=== PATIENT | female | born 1945 | race Caucasian/White ===

== ENCOUNTER 2016-09-25 16:58 | Outpatient (CLI) | payer OTHER | END 2016-09-25 16:59 | disposition critical access hospital (66) | DX: R07.9 Chest pain, unspecified (principal) | CPT/HCPCS: A0425; A0427 ==

== ENCOUNTER 2016-09-25 17:22 | Emergency (ER) | payer OTHER ==
[2016-09-25] MEDS ORDERED: NITROGLYCERIN 2% PASTE TOP STA (18:19)
[2016-09-25] MEDS ORDERED: NITROGLYCERIN SL 0.4 MG TABLET SL STA (18:19)
[2016-09-25] MEDS ORDERED: NITROGLYCERIN 2% PASTE TOP ONE (18:25)
[2016-09-25] MEDS ORDERED: HEPARIN 25,000 UNITS/500 ML 500 ML IV STA (18:28)
[2016-09-25] MEDS ORDERED: HEPARIN 5,000 UNIT/ML VIAL IVP ONE (18:28)
[2016-09-25] MEDS ORDERED: HEPARIN 25,000 UNITS/500 ML 500 ML IV ONE (18:29)
[2016-09-25] MEDS ORDERED: HEPARIN 5,000 UNIT/ML VIAL ONE (18:29)
== END 2016-09-25 18:47 | disposition short-term general hospital (02) ==
DX: I21.3 ST elevation (STEMI) myocardial infarction of unspecified site (principal); I25.10 Atherosclerotic heart disease of native coronary artery without angina pectoris
CPT/HCPCS: 71010; 80053; 82550; 82553; 83690; 84484; 85025; 93005; 93010; 96374; 96376; 99284; 99291; A9270

== ENCOUNTER 2016-09-25 18:58 | Outpatient (CLI) | payer OTHER | END 2016-09-25 18:59 | disposition short-term general hospital (02) | DX: I21.3 ST elevation (STEMI) myocardial infarction of unspecified site (principal) | CPT/HCPCS: A0425; A0427 ==

== ENCOUNTER 2016-11-28 11:17 | Outpatient (CLI) | payer OTHER ==
--- NOTE | 2016-11-29 13:06 | Mammography Report ---
DIGITAL SCREENING MAMMOGRAM: 11/28/2016 CLINICAL INDICATION: A 71-year-old with history of bilateral reduction for screening. COMPARISON: 10/2015, 12/2013, 10/2011, 10/2009, 09/2009, 11/2008, 10/2007. TECHNIQUE: Routine CC and MLO projections were obtained of the breasts as well as bilateral laterall y exaggerated craniocaudal views. FINDINGS: The breasts again demonstrate fatty replacement bilaterally. Post-reduction changes are s table. Coarse and punctate, typically benign calcifications are present. No suspicious masses, clus tered microcalcifications, or regions of architectural distortion are identified. IMPRESSION: BENIGN FINDINGS. RECOMMENDATION: Routine annual screening unless otherwise clinically indicated. BIRADS CATEGORY 2 - BENIGN FINDINGS. STANDARD QUALIFYING STATEMENTS 1. This examination was reviewed with the aid of Computer-Aided Detection (CAD). 2. A negative or benign imaging report should not delay biopsy if clinically suspicious findings are present. Consider surgical consultation if warranted. More than 5% of cancers are not identified by i maging. 3. Dense breasts may obscure an underlying neoplasm. JOB #: [id number] EXT JOB #:[id number]
== END 2016-11-28 11:18 | disposition home or self-care (01) ==
LOC: DI.N 11:17
PROVIDERS: ATTEND Internal Medicine
DX: Z12.31 Encounter for screening mammogram for malignant neoplasm of breast (principal)
CPT/HCPCS: 77067

== ENCOUNTER 2017-07-17 13:09 | Outpatient (CLI) | payer OTHER | END 2017-07-17 13:10 | disposition EMS.NT | LOC: EMS 13:09 | PROVIDERS: ATTEND Surgery | DX: R42 Dizziness and giddiness (principal) ==

== ENCOUNTER 2018-03-09 11:25 | Outpatient (CLI) | payer OTHER | END 2018-03-09 11:26 | disposition critical access hospital (66) | LOC: EMS 11:25 | PROVIDERS: ATTEND Surgery | DX: M79.661 Pain in right lower leg (principal) | CPT/HCPCS: A0425; A0429 ==

== ENCOUNTER 2018-03-09 11:48 | Emergency (ER) | payer OTHER ==
--- NOTE | 2018-03-09 13:02 | ED Physician Documentation ---
PD HPI SKIN - Stated complaint Stated Complaint: RASH - Chief complaint Chief Complaint: Wound - History obtained from History obtained from: Patient - History of Present Illness Timing - onset: How many days ago (has had episodic small sores on body for several weeks or more. These Rx by PMD with mupirocin and local treatment. She has sore on right baxter that started similar but is having expanding area of redness, weeping and some blistering.) Timing - duration: Days Timing - details: Abrupt onset, Still present Location: RLE Quality / character: Painful, Swelling, Draining (clear yellow) Associated symptoms: No: Fever, Myalgias, N/V/D Similar symptoms before: Has not had sx before (not the local redness and weeping that this site has.) Recently seen: Clinic (seen by PMD and also Derm for the prior lesions. Had biopsy of couple that resulted in excoriation look and inflammation. Biopsy results obtained from Derm office.) Review of Systems Constitutional: denies: Fever, Chills Nose: denies: Rhinorrhea / runny nose, Congestion Throat: denies: Sore throat Respiratory: denies: Cough GI: denies: Nausea, Vomiting, Diarrhea Skin: reports: Lesions PD PAST MEDICAL HISTORY - Past Medical History Past Medical History: Yes Cardiovascular: Hypertension, High cholesterol - Present Medications Home Medications: Ambulatory Orders Medication Instructions Recorded Confirmed Cetirizine [ZyrTEC] 10 mg PO DAILY 09/25/16 09/25/16 Cyanocobalamin (Vitamin B-12) 09/25/16 [Vitamin B-12 (100mcg tab)] Diclofenac Sodium 75 mg PO DAILY 09/25/16 09/25/16 FLUoxetine [PROzac] 10 mg PO DAILY 09/25/16 09/25/16 Levothyroxine [Synthroid] 09/25/16 Methocarbamol 09/25/16 Omeprazole [PriLOSEC] 20 09/25/16 Propranolol [Inderal] 40 09/25/16 Simvastatin 20 mg PO DAILY 09/25/16 09/25/16 amLODIPine [Norvasc] 5 mg PO DAILY 09/25/16 09/25/16 hydrOXYzine HCl [Hydroxyzine HCl] 10 mg PO DAILY 09/25/16 09/25/16 traZODone [Desyrel] 150 mg PO DAILY 09/25/16 09/25/16 Chlorhexidine Gluconate [Hibiclens] 10 ml TP DAILY #473 ml 03/09/18 Doxycycline Monohydrate 100 mg PO BID #14 tablet 03/09/18 Mupirocin 1 applic TP TID #15 oint...g. 03/09/18 - Allergies Allergies/Adverse Reactions: Allergies Allergy/AdvReac Type Severity Reaction Status Date / Time ibuprofen Allergy Unknown Verified 09/25/16 17:39 loratadine Allergy Unknown Verified 09/25/16 17:39 niacin Allergy Unknown Verified 09/25/16 17:39 prochlorperazine Allergy Unknown Verified 09/25/16 17:39 terfenadine Allergy Unknown Verified 09/25/16 17:39 - Social History Does the pt smoke?: No Smoking Status: Never smoker Does the pt drink ETOH?: No Does the pt have substance abuse?: No PD ED PE NORMAL - Vitals Vital signs reviewed: Yes - General General: Alert and oriented X 3, Well developed/nourished - HEENT HEENT: Pharynx benign - Neck Neck: Supple, no meningeal sign, No adenopathy - Cardiac Cardiac: RRR, No murmur - Respiratory Respiratory: Clear bilaterally - Abdomen Abdomen: Soft, Non tender - Derm Derm: Warm and dry, Other (body with discrete small slightly ulcerative lesions without redness nor swelling. Seem excoriated, somewhat like bed bug bites or such. Then right baxter with 3 cm diameter area of redness, swelling and weeping with superficial blistering. No induration nor abscess feel underneath. Not purulent per se. ) Results - Vitals Vitals: Vital Signs - 24 hr 03/09/18 03/09/18 12:00 13:58 Temperature 36.3 C L Heart Rate 96 54 L Respiratory 17 18 Rate Blood Pressure 126/67 122/67 O2 Saturation 97 96 Oxygen O2 Source Room air - Labs Labs: Microbiology 03/09/18 13:30 Wound Culture - Preliminary Leg - Left Staphylococcus Aureus PD MEDICAL DECISION MAKING - ED course Complexity details: considered differential (wound weeping clear yellow fluid, with some slight blistering. No induration nor abscess underneath. Presume form of bullous impetigo, likely staph. ), d/w patient - Sepsis Event Vital Signs: Vital Signs - 24 hr 03/09/18 03/09/18 12:00 13:58 Temperature 36.3 C L Heart Rate 96 54 L Respiratory 17 18 Rate Blood Pressure 126/67 122/67 O2 Saturation 97 96 Oxygen O2 Source Room air Departure - Departure Disposition: 01 Home, Self Care Clinical Impression: Wound infection Condition: Stable Record reviewed to determine appropriate education?: Yes Instructions: ED Staph Infec Abx Tx Only Follow-Up: Maegan Berry MD [Primary Care Provider] - Prescriptions: Chlorhexidine Gluconate [Hibiclens] 10 ml TP DAILY #473 ml Doxycycline Monohydrate 100 mg PO BID #14 tablet Mupirocin 1 applic TP TID #15 oint...g. Comments: I would use the chlorhexidine body wash from head to toe in the shower daily for the next week. I would not use it only at the areas of the sores. Apply mupirocin very lightly at the areas of the sores to 3 times daily. Apply it in your nostrils and fingernail beds lightly twice daily for the next week as well. Use doxycycline antibiotic for the next week. Change the dressings on the lower leg daily or more often if needed due to the weeping. Recheck with your primary care in the next few days. You could call your primary care office to see if they will want to set you up with the wound care clinic here at the hospital. That would have to originate from your primary care and we cannot do that referral from the ER. Discharge Date/Time: 03/09/18 14:25
[2018-03-09] MEDS ORDERED: DOXYCYCLINE 100 MG TABLET PO STA (13:32)
[2018-03-09 13:58] VITALS: BP 122/67
== END 2018-03-09 14:25 | disposition home or self-care (01) ==
LOC: EDUNIT# → ED 11:48
DX: S81.801A Unspecified open wound, right lower leg, initial encounter (principal); L08.9 Local infection of the skin and subcutaneous tissue, unspecified; X58.XXXA Exposure to other specified factors, initial encounter; I10 Essential (primary) hypertension; E78.00 Pure hypercholesterolemia, unspecified
CPT/HCPCS: 87070; 87181; 87205; 99283; A9270

== ENCOUNTER → 2018-03-12 | Outpatient (CLI) | payer MEDICARE, MEDICAID | END | disposition short-term general hospital (02) | LOC: EMS 14:56 | PROVIDERS: ATTEND Surgery | DX: S81.801A Unspecified open wound, right lower leg, initial encounter (principal); X58.XXXA Exposure to other specified factors, initial encounter ==

== ENCOUNTER 2018-06-18 11:02 | Emergency (ER) | payer MEDICARE, MEDICAID ==
[2018-06-18 11:07] VITALS: BP 127/64
--- NOTE | 2018-06-18 12:32 | ED Physician Documentation ---
History of Present Illness - Stated complaint Stated Complaint: SORES IN MOUTH - Chief complaint Chief Complaint: Heent - History obtained from History obtained from: Patient, Family - History of Present Illness Timing: How many days ago (several) Pain level max: 3 Pain level now: 3 - Additonal information Additional information: 72-year-old female recently started on Bactrim for a wound infection on the right leg. Was seen at wound care today and sent here for possible thrush. She has been complaining of sores in her mouth and on her fingers. This is all started since the Bactrim. No fevers. No difficulty swallowing. No rhinorrhea or congestion. No cough. No vomiting. She has 1 dose of the Bactrim left Review of Systems Constitutional: denies: Fever, Chills Respiratory: denies: Cough Skin: denies: Rash PD PAST MEDICAL HISTORY - Past Medical History Cardiovascular: Hypertension, High cholesterol, [place] Endocrine/Autoimmune: HyPOthyroidism, Other GI: GERD HEENT: Other Psych: Depression, Anxiety Derm: Other - Past Surgical History /MARKETING PRODUCTION COORDINATOR: Other Cardiovascular: Other - Present Medications Home Medications: Ambulatory Orders Medication Instructions Recorded Confirmed Acetaminophen 1 - 2 tab PO Q6HR PRN 04/02/18 04/02/18 Ascorbic Acid 1 tab PO DAILY 04/02/18 04/02/18 Aspirin [Adult Aspirin] 1 tab PO DAILY 04/02/18 04/02/18 Atorvastatin Calcium 2 tab PO DAILY 04/02/18 04/09/18 Cholecalciferol (Vitamin D3) 800 unit PO DAILY 04/02/18 04/02/18 [Vitamin D3] Cyanocobalamin (Vitamin B-12) 0.5 tab PO DAILY 04/02/18 04/09/18 [Vitamin B-12] Famotidine 1 tab PO DAILY 04/02/18 04/02/18 Fluoxetine HCl 1 cap PO DAILY 04/02/18 04/02/18 Isosorbide Mononitrate [Isosorbide 1 tab PO DAILY 04/02/18 04/02/18 Mononitrate ER] Levothyroxine Sodium 1 tab PO DAILY 04/02/18 04/02/18 Methocarbamol 1 tab PO Q6HR PRN 04/02/18 04/02/18 Metoprolol Tartrate 1 tab PO BID 04/02/18 04/02/18 Nitroglycerin 1 tab SL 04/02/18 Oxycodone HCl/Acetaminophen 1 tab PO Q4HR PRN 04/02/18 04/02/18 [Oxycodone-Acetaminophen 5-325] Sucralfate 1 tab PO Q6HR PRN 04/02/18 04/02/18 Trazodone HCl 150 mg PO DAILY 04/02/18 04/02/18 Docusate Sodium [Dss] 250 mg PO DAILY 04/09/18 04/09/18 Sulfamethox/Trimeth 800/160 1 06/18/18 [Bactrim Ds] - Allergies Allergies/Adverse Reactions: Allergies Allergy/AdvReac Type Severity Reaction Status Date / Time ibuprofen Allergy Unknown Verified 04/02/18 14:52 loratadine Allergy Unknown Verified 04/02/18 14:52 niacin Allergy Unknown Verified 04/02/18 14:52 prochlorperazine Allergy Unknown Verified 04/02/18 14:52 terfenadine Allergy Unknown Verified 06/18/18 11:08 - Social History Does the pt smoke?: No Smoking Status: Never smoker Does the pt drink ETOH?: No Does the pt have substance abuse?: No PD ED PE NORMAL - Vitals Vital signs reviewed: Yes - General General: Alert and oriented X 3, No acute distress - HEENT HEENT: Moist mucous membranes, Other (Inflamed hawkins area under the tongue and to the lower and upper lip. Does not scrape off. No bleeding.) - Neck Neck: Supple, no meningeal sign - Cardiac Cardiac: RRR - Respiratory Respiratory: No respiratory distress, Clear bilaterally - Derm Derm: Warm and dry - Neuro Neuro: Alert and oriented X 3 - Psych Psych: Normal mood, Normal affect Results - Vitals Vitals: Vital Signs - 24 hr 06/18/18 11:04 Temperature 36.9 C Heart Rate 62 Respiratory 18 Rate Blood Pressure 127/64 O2 Saturation 95 Oxygen O2 Source Room air PD MEDICAL DECISION MAKING - ED course Complexity details: considered differential, d/w patient, d/w family ED course: 72-year-old female with what appears to be a mucositis from the Bactrim. We will have her stop the Bactrim after her next dose and monitor this at home. Does not appear consistent with thrush at this time. She is very well- appearing, nontoxic. Afebrile. Tolerating p.o. without difficulty. Patient c ounseled regarding signs and symptoms for which I believe and urgent re- evaluation would be necessary. Patient with good understanding of and agreement to plan and is comfortable going home at this time This document was made in part using voice recognition software. While efforts are made to proofread this document, sound alike and grammatical errors may occur. Departure - Departure Disposition: 01 Home, Self Care Clinical Impression: Mucositis Condition: Good Instructions: Mucositis Manage Ch Follow-Up: Maegan Berry MD [Primary Care Provider] - Within 1 week Comments: This should resolve as you stop the bactrim. It may take a week or longer. Return if you worsen, especially for fevers. Discharge Date/Time: 06/18/18 12:48
== END 2018-06-18 12:48 | disposition home or self-care (01) ==
LOC: ED 11:02
DX: K12.30 Oral mucositis (ulcerative), unspecified (principal); I10 Essential (primary) hypertension; E78.00 Pure hypercholesterolemia, unspecified; I25.2 Old myocardial infarction; E03.9 Hypothyroidism, unspecified; Z79.82 Long term (current) use of aspirin
CPT/HCPCS: 99282

== ENCOUNTER 2018-10-13 13:36 | Outpatient (CLI) | payer MEDICARE, MEDICAID | END 2018-10-13 13:37 | disposition critical access hospital (66) | LOC: EMS 13:36 | PROVIDERS: ATTEND Surgery | DX: R07.9 Chest pain, unspecified (principal); R20.2 Paresthesia of skin; I25.2 Old myocardial infarction | CPT/HCPCS: A0425; A0429 ==

== ENCOUNTER 2018-10-13 13:57 | Emergency (ER) | payer MEDICARE, MEDICAID ==
[2018-10-13 14:32] LABS: BASOPHILS % (AUTO) 0.5 %; EOSINOPHILS # (AUTO) 0.3 10^3/uL (0.0-0.7); HGB - HEMOGLOBIN 13.7 g/dL (12.0-16.0); LYMPHOCYTES # (AUTO) 1.2 10^3/uL (1.5-3.5); LYMPHOCYTES % (AUTO) 20.7 %; MEAN CORPUSCULAR HEMOGLOBIN 29.1 pg (27.0-31.0); MEAN CORPUSCULAR VOLUME 88.3 fL (81.0-99.0); MEAN PLATELET VOLUME 7.6 fL (7.9-10.8); MONOCYTES # (AUTO) 0.6 10^3/uL (0.0-1.0); MONOCYTES % (AUTO) 9.3 %; NEUTROPHILS # (AUTO) 3.8 10^3/uL (1.5-6.6); NEUTROPHILS % (AUTO) 64.5 %; PLT - PLATELET COUNT 149 10^3/uL (130-450); RED BLOOD COUNT 4.69 10^6/uL (4.20-5.40); RED CELL DISTRIBUTION WIDTH 15.6 % (12.0-15.0)
--- NOTE | 2018-10-13 14:33 | ED Physician Documentation ---
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 It lasted a few seconds only. Over the course of 10 minutes she had 3 separate episodes each very brief of sharp pain. She states she then felt a little heaviness in her shoulders. She denied any dyspnea. She subsequently told her caregiver and EMS was notified. EMS states the patient did not initially want to come in but they convinced her to come get evaluated.) Timing - duration: Seconds Timing - details: Abrupt onset, Now resolved Quality: Aching, Sharp, Pain Location: Substernal, Left chest Improved by: Nitro Worsened by: No: Inspiration, Movement, Palpation Associated symptoms: General Weakness. No: Shortness of air, Nausea, Palpitations Similar symptoms before: No diagnosis (She states she had bypass surgery in 2018 and subsequently has occasional fleeting chest pains or pressure for which she takes a nitroglycerin and seems to be improved. She had not been to her senior ui designer recently as she missed an appointment due to transportation. Her next senior ui designer appointment is in November. She has not had a recent change in medicines. She states she uses her sublingual nitroglycerin less than weekly.) Recently seen: Not recently seen Review of Systems Constitutional: denies: Fever Nose: denies: Rhinorrhea / runny nose, Congestion Throat: denies: Sore throat Respiratory: reports: Cough (mild dry cough recently that she feels is due to allergies.) GI: denies: Abdominal Pain, Nausea, Vomiting Musculoskeletal: denies: Extremity swelling Neurologic: reports: Generalized weakness. denies: Focal weakness, Numbness, Near syncope PD PAST MEDICAL HISTORY - Past Medical History Cardiovascular: Hypertension, High cholesterol, [place] Endocrine/Autoimmune: HyPOthyroidism, Other GI: GERD HEENT: Other Psych: Depression, Anxiety Derm: Other - Past Surgical History /CERTIFIED MARINE MECHANIC: Other Cardiovascular: Other - Present Medications Home Medications: Ambulatory Orders Medication Instructions Recorded Confirmed Acetaminophen 1 - 2 tab PO Q6HR PRN 04/02/18 10/13/18 Ascorbic Acid 1 tab PO DAILY 04/02/18 10/13/18 Aspirin [Adult Aspirin] 1 tab PO DAILY 04/02/18 10/13/18 Atorvastatin Calcium 2 tab PO DAILY 04/02/18 10/13/18 Cholecalciferol (Vitamin D3) 800 unit PO DAILY 04/02/18 10/13/18 [Vitamin D3] Cyanocobalamin (Vitamin B-12) 0.5 tab PO DAILY 04/02/18 10/13/18 [Vitamin B-12] Famotidine 1 tab PO DAILY 04/02/18 10/13/18 Fluoxetine HCl 1 cap PO DAILY 04/02/18 10/13/18 Isosorbide Mononitrate [Isosorbide 1 tab PO DAILY 04/02/18 10/13/18 Mononitrate ER] Levothyroxine Sodium 1 tab PO DAILY 04/02/18 10/13/18 Methocarbamol 1 tab PO Q6HR PRN 04/02/18 10/13/18 Metoprolol Tartrate 1 tab PO BID 04/02/18 10/13/18 Nitroglycerin 1 tab SL PRN PRN 04/02/18 10/13/18 Oxycodone HCl/Acetaminophen 1 tab PO Q4HR PRN 04/02/18 10/13/18 [Oxycodone-Acetaminophen 5-325] Trazodone HCl 150 mg PO DAILY 04/02/18 10/13/18 Docusate Sodium [Dss] 250 mg PO DAILY 04/09/18 10/13/18 Clopidogrel [Plavix] 75 mg PO DAILY 10/13/18 10/13/18 - Allergies Allergies/Adverse Reactions: Allergies Allergy/AdvReac Type Severity Reaction Status Date / Time ibuprofen Allergy Unknown Verified 10/13/18 14:07 loratadine Allergy Unknown Verified 10/13/18 14:07 niacin Allergy Unknown Verified 10/13/18 14:07 prochlorperazine Allergy Unknown Verified 10/13/18 14:07 terfenadine Allergy Unknown Verified 10/13/18 14:07 - Social History Does the pt smoke?: No Smoking Status: Never smoker Does the pt drink ETOH?: No Does the pt have substance abuse?: No PD ED PE NORMAL - Vitals Vital signs reviewed: Yes - General General: Alert and oriented X 3, No acute distress, Well developed/nourished - HEENT HEENT: Pharynx benign - Neck Neck: Supple, no meningeal sign, No adenopathy - Cardiac Cardiac: RRR, No murmur - Respiratory Respiratory: Clear bilaterally, Other (no chestwall tenderness) - Abdomen Abdomen: Soft, Non tender - Back Back: No CVA TTP - Derm Derm: Normal color, Warm and dry - Extremities Extremities: Normal ROM s pain, No edema, No calf tenderness / cord, Other (There is spotty to blotchy red rash on both anterior lower legs which is slightly tender. There are no areas of consolidation nor drainage.) - Neuro Neuro: Alert and oriented X 3, No motor deficit, Normal speech Results - Vitals Vitals: Vital Signs - 24 hr 10/13/18 10/13/18 10/13/18 13:59 16:09 17:38 Temperature 36.1 C L 36.7 C Heart Rate 57 L 56 L 62 Respiratory 15 21 18 Rate Blood Pressure 158/75 H 153/82 H 156/64 H O2 Saturation 95 95 94 Oxygen O2 Source Room air - EKG (time done) 14:03 Rate: Rate (enter#) (56) Rhythm: NSR [place]: Normal Intervals: Normal [place] QRS: Normal Ischemia: Normal ST segments. No: ST elevation c/w ischemia, ST depression - Labs Labs: Laboratory Tests 10/13/18 10/13/18 10/13/18 14:25 14:25 14:25 WBC 6.0 RBC 4.69 Hgb 13.7 Hct 41.4 MCV 88.3 MCH 29.1 MCHC 33.0 RDW 15.6 H Plt Count 149 MPV 7.6 L Neut # (Auto) 3.8 Lymph # (Auto) 1.2 L Kerr # (Auto) 0.6 Eos # (Auto) 0.3 Baso # (Auto) 0.0 Absolute Nucleated RBC 0.01 Nucleated RBC % 0.1 Sodium 139 Potassium 4.0 Chloride 104 Carbon Dioxide 25 Anion Gap 10.0 BUN 13 Creatinine 0.7 Estimated GFR (MDRD) 82 L Glucose 103 H Calcium 8.8 Total Bilirubin 0.6 AST 19 ALT 13 Alkaline Phosphatase 68 Troponin I < 0.04 B-Natriuretic Peptide Total Protein 6.4 L Albumin 3.5 Globulin 2.9 Albumin/Globulin Ratio 1.2 Lipase 39 Urine Color Urine Clarity Urine pH Ur Specific [place] Urine Protein Urine Glucose (UA) Urine Ketones Urine Occult Blood Urine Nitrite Urine Bilirubin Urine Urobilinogen Ur Leukocyte Esterase Ur Microscopic Review Urine Culture Comments 10/13/18 10/13/18 10/13/18 14:25 14:30 16:27 WBC RBC Hgb Hct MCV MCH MCHC RDW Plt Count MPV Neut # (Auto) Lymph # (Auto) Kerr # (Auto) Eos # (Auto) Baso # (Auto) Absolute Nucleated RBC Nucleated RBC % Sodium Potassium Chloride Carbon Dioxide Anion Gap BUN Creatinine Estimated GFR (MDRD) Glucose Calcium Total Bilirubin AST ALT Alkaline Phosphatase Troponin I < 0.04 B-Natriuretic Peptide 367 H Total Protein Albumin Globulin Albumin/Globulin Ratio Lipase Urine Color YELLOW Urine Clarity CLEAR Urine pH 5.0 Ur Specific [place] 1.020 Urine Protein NEGATIVE Urine Glucose (UA) NEGATIVE Urine Ketones NEGATIVE Urine Occult Blood TRACE-INTA Urine Nitrite NEGATIVE Urine Bilirubin NEGATIVE Urine Urobilinogen 0.2 (NORMAL) Ur Leukocyte Esterase NEGATIVE Ur Microscopic Review NOT INDICATED Urine Culture Comments NOT INDICATED PD MEDICAL DECISION MAKING - ED course Complexity details: reviewed results (repeat Troponin still negative), considered differential (The pain episode sounds atypical for acute coronary syndrome. However she does have a history of heart disease. We can do EKG and troponin. Given the on sudden timing of the pain was an hour and a half ago, a negative troponin at this point may not be conclusive. If it is normal will wait 2 hours and do a repeat to be more certain. I think this would be adequate and is slow probability setting.), d/w patient Departure - Departure Disposition: 01 Home, Self Care Clinical Impression: Chest pain Qualifiers: Chest pain type: precordial pain Qualified Code(s): R07.2 - Precordial pain Condition: Stable Record reviewed to determine appropriate education?: Yes Instructions: ED Chest Pain NonCardiac Follow-Up: Maegan Berry MD [Primary Care Provider] - Comments: Your EKG x-ray and blood tests are normal here. There is no signs of heart failure or heart attack as the cause of your pain episode today. There is no signs of a lung cause such as pneumonia or fluid around the lung. Continue usual medications. Follow-up with your primary care is needed. See your senior ui designer in November as planned. Discharge Date/Time: 10/13/18 18:11
[2018-10-13 14:48] LABS: ALBUMIN 3.5 g/dL (3.2-5.5); ALBUMIN/GLOBULIN RATIO 1.2 (1.0-2.2); BILIRUBIN,TOTAL 0.6 mg/dL (0.2-1.0); CALCIUM 8.8 mg/dL (8.5-10.3); CREATININE 0.7 mg/dL (0.4-1.0); TOTAL PROTEIN 6.4 g/dL (6.7-8.2)
--- NOTE | 2018-10-13 15:03 | XRAY Report ---
Reason: Chest Pain Procedure Date: 10/13/2018 Accession Number: [id number] / [id number] Procedure: XR - Chest 1 View X-Ray CPT Code: 19461 FULL RESULT: EXAM: CHEST RADIOGRAPHY EXAM DATE: 10/13/2018 02:46 PM. CLINICAL HISTORY: Chest Pain. COMPARISON: CHEST 1 VIEW 09/25/2016 6:21 PM. TECHNIQUE: 1 view. FINDINGS: Lungs/Pleura: Clear. No effusion or pneumothorax. Mediastinum: Within exam limitations, the cardiomediastinal contour is normal. Upper lobe vessels not distended. Other: Status post median sternotomy. Degenerative changes. IMPRESSION: No acute disease. RADIA
[2018-10-13 15:43] LABS: BILIRUBIN,URINE NEGATIVE (NEGATIVE); GLUCOSE, URINE (UA) NEGATIVE (NEGATIVE); KETONES,URINE (UA) NEGATIVE (NEGATIVE); LEUKOCYTE ESTERASE, URINE NEGATIVE (NEGATIVE); NITRITE,URINE NEGATIVE (NEGATIVE); OCCULT BLOOD,URINE TRACE-INTA (NEGATIVE); PROTEIN,URINE NEGATIVE (NEGATIVE); UROBILINOGEN,URINE 0.2 (NORMAL) E.U./dL (NORMAL)
[2018-10-13 15:47] LABS: CLARITY,URINE CLEAR (CLEAR)
[2018-10-13 17:38] VITALS: BP 156/64
== END 2018-10-13 18:11 | disposition home or self-care (01) ==
LOC: EDUNIT# → ED 13:57
DX: R07.2 Precordial pain (principal); I10 Essential (primary) hypertension; R21 Rash and other nonspecific skin eruption; Z86.79 Personal history of other diseases of the circulatory system; I25.2 Old myocardial infarction
CPT/HCPCS: 36415; 71045; 80053; 81001; 81003; 83690; 83880; 84484; 85025; 87086; 93005; 99284

== ENCOUNTER 2019-11-11 13:08 | Outpatient (CLI) | payer MEDICARE, MEDICAID | END 2019-11-11 13:09 | disposition EMS.NT | LOC: EMS 13:08 | PROVIDERS: ATTEND Surgery | DX: M25.552 Pain in left hip (principal); W08.XXXA Fall from other furniture, initial encounter; Y92.009 Unspecified place in unspecified non-institutional (private) residence as the place of occurrence of the external cause ==

== ENCOUNTER 2021-11-08 16:54 | Outpatient (CLI) | payer MEDICARE, MEDICAID | END 2021-11-08 16:55 | disposition short-term general hospital (02) | LOC: EMS 16:54 | DX: R07.9 Chest pain, unspecified (principal); R68.84 Jaw pain | CPT/HCPCS: A0425; A0427 ==

== ENCOUNTER 2022-05-22 12:26 | Outpatient (CLI) | payer OTHER ==
--- NOTE | 2022-05-22 17:51 | DEXA Report ---
PROCEDURE: Dexa Spine and/or Hip INDICATIONS: Osteoporosis TECHNIQUE: Dual energy x-ray absorptiometry (DXA) was performed on a [employer] System. Regions measur ed are the AP Spine, femoral neck, and if needed forearm. COMPARISON: None. FINDINGS: Lumbar Spine: Bone Mineral Density 1.636 g/cm/cm,T score 3.8, normal Left Femoral Neck: Bone Mineral Density 0.958 g/cm/cm, T score -0.6, normal Left Hip: Bone Mineral Density 1.089 g/cm/cm,T score 0.6, normal Impression: Normal bone mineral density. Patients with diagnosis of osteoporosis or osteopenia should have regular bone mineral density assess ment. For those eligible for Medicare, routine testing is allowed once every 2 years. Testing frequ ency can be increased for patients who have rapidly progressing disease or for those who are receivin g medical therapy to restore bone mass. Reviewed by: Michael Hamilton MD on 05/22/2022 4:50 PM [facility] Approved by: Michael Hamilton MD on 05/22/2022 4:50 PM [facility] Station ID: [id number]
== END 2022-05-22 12:27 | disposition home or self-care (01) ==
LOC: DI 12:26
PROVIDERS: ATTEND Internal Medicine
DX: M81.6 Localized osteoporosis [Lequesne] (principal)